=== PATIENT | male | born 1935 | race Caucasian/White ===

== ENCOUNTER 2020-11-23 08:29 | Outpatient (REF) | payer OTHER, SELFPAY ==
[2020-11-23 09:44] LABS: MANUAL DIFF FLAG NO
[2020-11-23 10:08] LABS: Basophils Percent Auto 0.5 % (0-2); Eosinophils Absolute Auto 0.2 X10*3/uL (0.0-0.4); Eosinophils Percent Auto 3.7 % (0-4); Hematocrit 45.4 % (42-52); Hemoglobin 14.6 g/dl (14.0-18.0); Imm Gran Abs Auto 0.04 X10*3/uL (0.00-0.03); Imm Gran Pct Auto 0.6 % (0.0-0.4); Lymphocytes Absolute Auto 1.8 X10*3/uL (1.2-4.9); Lymphocytes Percent Auto 27.9 % (20-40); Mean Corpuscular HGB Conc 32.2 g/dl (31.0-36.0); Mean Corpuscular Hemoglobin 29.5 pg (27.0-33.0); Mean Corpuscular Volume 91.7 fL (80-98); Monocytes Absolute Auto 0.5 X10*3/uL (0.1-1.2); Monocytes Percent Auto 6.9 % (2-11); Neutrophils Absolute Auto 3.9 X10*3/uL (2.0-8.3); Neutrophils Percent Auto 60.4 % (45-73); Platelet Count 318 X10*3/uL (160-400); Red Blood Count 4.95 X10*6/uL (4.60-5.80); Red Cell Distribution Width 13.2 % (11.0-16.0); White Blood Count 6.5 X10*3/uL (4.8-10.8)
[2020-11-23 10:17] LABS: Alanine Aminotransferase 12 U/L (0-40); Alkaline Phosphatase 58 U/L (39-117); Anion Gap 13 (12-20); Aspartate Amino Transferase 11 U/L (5-37); Bilirubin Total 0.7 mg/dL (0.0-1.0); Blood Urea Nitrogen 17 mg/dL (9-16); Calcium 9.5 mg/dL (8.4-10.2); Carbon Dioxide 26 mmol/L (22-29); Chloride 107 mmol/L (96-108); Cholesterol 158 mg/dL; Estimated Glomerular Filt Rate > 60; Glucose Fasting 94 mg/dL (60-99); HDL Cholesterol 43 mg/dL; LDL Cholesterol Calculated 99 mg/dl; Potassium 4.9 mmol/L (3.3-5.1); Sodium 141 mmol/L (135-145); Total Protein 7.1 g/dL (6.5-8.0); Triglycerides 82 mg/dL
[2020-11-23 10:39] LABS: Thyroid Stimulating Hormone 1.43 uIU/mL (0.32-4.0)
== END 2020-11-23 08:30 | disposition home or self-care (01) ==
LOC: HO.LAB 08:29
PROVIDERS: PCP Internal Medicine; Visit Provider Internal Medicine
DX: Z00.00 Encounter for general adult medical examination without abnormal findings (principal); E03.9 Hypothyroidism, unspecified; E11.9 Type 2 diabetes mellitus without complications
CPT/HCPCS: 36415; 80053; 80061; 84443; 85025

== ENCOUNTER 2020-11-30 12:20 | Outpatient (REF) | payer OTHER, SELFPAY ==
--- NOTE | ~2020-11-30 | US_ITS ---
EXAMINATION: US THYROID CLINICAL INFORMATION: Nontoxic single thyroid nodule. COMPARISON: None TECHNIQUE: Linear transducer velez-scale and color Doppler examination with attention to the region of the thyroid. FINDINGS: SIZE: Measurements of the thyroid lobes and nodules are given in sagittal, anteroposterior and transverse dimensions respectively. Right Thyroid Lobe: 5.5 x 4.0 x 3.0 cm, volume 34 mL. Parenchyma: The gland echotexture is homogeneous. Thyroid vascularity is normal. Left Thyroid Lobe: 3.4 x 1.9 x 1.1 cm, volume 3.6 mL. Parenchyma: The gland echotexture is homogeneous. Thyroid vascularity is normal. Isthmus: 0.16 cm in maximum AP dimension. Estimated total number of nodules greater than or equal to 1 cm: 1. Operating Room Registered Nurse nodules are described as follows: 1. Location: Right inferior. Size: 4.2 x 3.0 x 3.8 cm, volume 25.0 mL. Nodule characteristics: Composition: Solid/almost completely solid (2). Echogenicity: Hypoechoic (2). Shape: Not taller than wide (0). Margins: Smooth (0). Echogenic Foci: None (0). ACR TI-RADS total points: 4 ACR TI-RADS category: 4 NODES: No lymphadenopathy is seen in the tissue surrounding the thyroid gland. US/US thyroid IMPRESSION: Homogeneous thyroid parenchyma with normal vascularity. No thyromegaly. Inferior right thyroid nodule measuring up to 4.2 cm with ultrasound characteristics consistent with TI-RADS Category 4. Fine-needle aspiration of the nodule is recommended. ACR TI-RADS RECOMMENDATION REFERENCE: Ultrasound-guided fine-needle aspiration, followup ultrasound, no further followup. * TR1 (0 point) and TR 2 (2 points): No FNA or followup. * TR3 (3 points): FNA if more than or equal to 2.5 cm in maximum dimension, followup ultrasound in 1, 3 and 5 years if 1.5 to 2.4 cm in maximum dimension. * TR4 (4-6 points): FNA if more than or equal to 1.5 cm in maximum dimension, followup ultrasound in 1, 2, 3 and 5 years if 1 to 1.4 cm in maximum dimension. * TR5 (more than or equal to 7 points): FNA if more than or equal to 1 cm in maximum dimension, followup ultrasound every year for 5 years if 0.5 to 0.9 cm in maximum dimension. * TR3, TR4 or TR5 nodules that are below the size threshold for followup receive no followup.
== END 2020-11-30 12:21 | disposition home or self-care (01) ==
LOC: HO.US 12:20
PROVIDERS: Visit Provider Internal Medicine
DX: E04.1 Nontoxic single thyroid nodule (principal)
CPT/HCPCS: 76536

== ENCOUNTER → 2020-12-07 13:11 | Outpatient (BNVA) | payer OTHER, SELFPAY | PROVIDERS: PCP Internal Medicine; Referring Provider Internal Medicine; Visit Provider Nurse Practitioner ==

== ENCOUNTER 2021-12-03 08:27 | Outpatient (REF) | payer OTHER, SELFPAY | END 2021-12-03 08:28 | disposition home or self-care (01) | LOC: HO.LAB 08:27 | PROVIDERS: PCP Internal Medicine; Visit Provider Internal Medicine | DX: N39.0 Urinary tract infection, site not specified (principal) | CPT/HCPCS: 87086 ==

== ENCOUNTER 2021-12-06 07:38 | Outpatient (REF) | payer OTHER, SELFPAY ==
[2021-12-06 08:00] LABS: MANUAL DIFF FLAG NO
[2021-12-06 08:27] LABS: Basophils Percent Auto 0.4 % (0-2); Eosinophils Absolute Auto 0.3 X10*3/uL (0.0-0.4); Hematocrit 42.1 % (42.0-52.0); Hemoglobin 13.4 g/dl (14.0-18.0); Imm Gran Abs Auto 0.03 X10*3/uL (0.00-0.03); Imm Gran Pct Auto 0.4 % (0.0-0.4); Lymphocytes Absolute Auto 1.7 X10*3/uL (1.2-4.9); Lymphocytes Percent Auto 24.9 % (20-40); Mean Corpuscular HGB Conc 31.8 g/dl (31.0-36.0); Mean Corpuscular Hemoglobin 29.1 pg (27.0-33.0); Mean Corpuscular Volume 91.3 fL (80.0-98.0); Mean Platelet Volume 11.2 fL (9.4-12.4); Monocytes Absolute Auto 0.6 X10*3/uL (0.1-1.2); Monocytes Percent Auto 8.4 % (2-11); Neutrophils Absolute Auto 4.2 x10*3/uL (2.0-8.3); Neutrophils Percent Auto 61.9 % (45-73); Platelet Count 377 X10*3/uL (160-400); Red Blood Count 4.61 X10*6/uL (4.60-5.80); Red Cell Distribution Width 13.4 % (11.0-16.0); White Blood Count 6.8 X10*3/uL (4.8-10.8)
[2021-12-06 08:57] LABS: Alanine Aminotransferase 7 U/L (0-40); Alkaline Phosphatase 83 U/L (39-117); Anion Gap 11 (12-20); Aspartate Amino Transferase 9 U/L (5-37); Bilirubin Total 0.8 mg/dL (0.0-1.0); Blood Urea Nitrogen 15 mg/dL (9-16); Calcium 9.2 mg/dL (8.4-10.2); Carbon Dioxide 27 mmol/L (22-29); Chloride 107 mmol/L (96-108); Cholesterol 165 mg/dL; Estimated Glomerular Filt Rate > 60; Glucose Fasting 98 mg/dL (60-99); HDL Cholesterol 39 mg/dL; LDL Cholesterol Calculated 108 mg/dl; Potassium 4.6 mmol/L (3.3-5.1); Sodium 140 mmol/L (135-145); Total Protein 7.2 g/dL (6.5-8.0); Triglycerides 94 mg/dL
[2021-12-06 09:08] LABS: Thyroid Stimulating Hormone 1.81 uIU/mL (0.32-4.0)
== END 2021-12-06 07:39 | disposition home or self-care (01) ==
LOC: HO.LAB 07:38
PROVIDERS: PCP Internal Medicine; Visit Provider Internal Medicine
DX: Z13.0 Encounter for screening for diseases of the blood and blood-forming organs and certain disorders involving the immune mechanism (principal); E78.5 Hyperlipidemia, unspecified; E03.9 Hypothyroidism, unspecified; I10 Essential (primary) hypertension
CPT/HCPCS: 36415; 80053; 80061; 84443; 85025

== ENCOUNTER 2022-03-28 10:21 | Outpatient (REF) | payer OTHER, SELFPAY ==
[2022-03-28 10:35] LABS: MANUAL DIFF FLAG NO
[2022-03-28 11:07] LABS: Basophils Percent Auto 0.4 % (0-2); Eosinophils Absolute Auto 0.4 X10*3/uL (0.0-0.4); Eosinophils Percent Auto 5.6 % (0-4); Hematocrit 41.1 % (42.0-52.0); Hemoglobin 13.2 g/dl (14.0-18.0); Imm Gran Abs Auto 0.04 X10*3/uL (0.00-0.03); Imm Gran Pct Auto 0.6 % (0.0-0.4); Lymphocytes Absolute Auto 1.7 X10*3/uL (1.2-4.9); Lymphocytes Percent Auto 24.2 % (20-40); Mean Corpuscular HGB Conc 32.1 g/dl (31.0-36.0); Mean Corpuscular Hemoglobin 28.9 pg (27.0-33.0); Mean Corpuscular Volume 90.1 fL (80.0-98.0); Mean Platelet Volume 11.2 fL (9.4-12.4); Monocytes Absolute Auto 0.7 X10*3/uL (0.1-1.2); Monocytes Percent Auto 10.7 % (2-11); Neutrophils Percent Auto 58.5 % (45-73); Platelet Count 422 X10*3/uL (160-400); Red Blood Count 4.56 X10*6/uL (4.60-5.80); Red Cell Distribution Width 14.3 % (11.0-16.0); White Blood Count 6.9 X10*3/uL (4.8-10.8)
[2022-03-28 12:02] LABS: Anion Gap 13 (12-20); Blood Urea Nitrogen 13 mg/dL (9-16); Calcium 8.9 mg/dL (8.4-10.2); Carbon Dioxide 26 mmol/L (22-29); Chloride 107 mmol/L (96-108); Estimated Glomerular Filt Rate > 60; Glucose Random 80 mg/dL (60-115); Potassium 4.6 mmol/L (3.3-5.1); Sodium 141 mmol/L (135-145); Thyroid Stimulating Hormone 1.54 uIU/mL (0.32-4.0)
[2022-03-28 12:17] LABS: Folate 4.6 ng/mL (> or = 4.0); Vitamin B12 268 pg/mL (200-900)
== END 2022-03-28 10:22 | disposition home or self-care (01) ==
LOC: HO.LAB 10:21
PROVIDERS: PCP Internal Medicine; Visit Provider Internal Medicine
DX: Z13.0 Encounter for screening for diseases of the blood and blood-forming organs and certain disorders involving the immune mechanism (principal); E03.9 Hypothyroidism, unspecified; R41.89 Other symptoms and signs involving cognitive functions and awareness; R51.9 Headache, unspecified
CPT/HCPCS: 36415; 80048; 82607; 82746; 84443; 85025

== ENCOUNTER 2022-04-19 09:18 | Outpatient (REF) | payer OTHER, SELFPAY ==
--- NOTE | ~2022-04-19 | CT_ITS ---
EXAMINATION: CT HEAD WITHOUT CONTRAST CLINICAL INFORMATION: Impairment cognitive function COMPARISON: No relevant prior imaging. TECHNIQUE: Contiguous axial imaging was performed from the skull base to vertex without intravenous administration of contrast. This CT examination was performed using dose optimization techniques as appropriate, variously including the following: *Automated exposure control *Adjustment of mA and/or kV according to patient size (this includes techniques or standardized protocols for targeted exams where dose is matched to indication/reason for exam; i.e. extremities or head) *Use of iterative reconstruction technique DLP: 744 mGy-cm FINDINGS: There is no acute intracranial hemorrhage or abnormal extra-axial collection. No intracranial mass effect or midline shift. Lateral and third ventricles are proportionate to the subarachnoid spaces. No hydrocephalus. There are scattered nonspecific foci of hypoattenuation within the periventricular white matter that most likely represent a chronic manifestation of small vessel ischemia. Quintanilla-white matter differentiation is otherwise preserved and there is no evidence of acute territorial infarct. The calvarium and skull base are intact. Mastoid air cells and middle ear cavities are well aerated. Mild mucosal thickening is partially visualized within the ethmoid air cells and frontal sinuses. CT/CT head/brain wo IV con IMPRESSION: There are scattered chronic small vessel ischemic changes within the periventricular white matter. Otherwise unremarkable examination. No evidence of acute territorial infarct or hemorrhage.
== END 2022-04-19 09:19 | disposition home or self-care (01) ==
LOC: HO.CT 09:18
PROVIDERS: Visit Provider Internal Medicine
DX: R41.89 Other symptoms and signs involving cognitive functions and awareness (principal)
CPT/HCPCS: 70450

== ENCOUNTER 2022-08-14 11:24 | Outpatient (REF) | payer OTHER, SELFPAY ==
[2022-08-14 17:48] LABS: Appearance Urine Clear; Color Urine Dark Yellow; Glucose Urine UA Negative (Negative); Leukocyte Esterase Urine Negative (Negative); Nitrite Urine Negative (Negative); PH 5.5 (5.0-9.0); Specific Gravity - Urine 1.025 (1.005-1.025); Urine Blood Negative (Negative); Urine Ketones Negative (Negative); Urine Protein Negative (Neg-Trace)
== END 2022-08-14 11:25 | disposition home or self-care (01) ==
LOC: HO.LAB 11:24
PROVIDERS: PCP Internal Medicine; Visit Provider Internal Medicine
DX: R41.89 Other symptoms and signs involving cognitive functions and awareness (principal)
CPT/HCPCS: 81003

== ENCOUNTER → 2022-09-04 12:18 | Outpatient (REF) | payer OTHER, SELFPAY ==
--- NOTE | 2022-09-04 12:26 | ECG_ITS ---
Test Reason : OTHER SYMPTOMS OF COG. FUNCTION Blood Pressure : / mmHG Vent. Rate : 047 BPM Atrial Rate : 047 BPM P-R Int : 216 ms QRS Dur : 084 ms QT Int : 450 ms P-R-T Axes : 002 -17 037 degrees QTc Int : 398 ms Sinus bradycardia with 1st degree A-V block Otherwise normal ECG When compared with ECG of 06-JAN-2009 09:58, WA interval has increased Referred By: Vikas Fernandez Electronically Signed By:Sarwat Hess
== END ==
LOC: HO.CARD 12:18
PROVIDERS: PCP Internal Medicine; Visit Provider Internal Medicine
DX: R41.89 Other symptoms and signs involving cognitive functions and awareness (principal)
CPT/HCPCS: 93005

== ENCOUNTER 2022-11-20 13:07 | Outpatient (REF) | payer OTHER, SELFPAY ==
--- NOTE | ~2022-11-20 | XR_ITS ---
EXAMINATION: XR LUMBOSACRAL SPINE CLINICAL INFORMATION: Left-sided lower back pain COMPARISON: 01/09/2019 CT scan TECHNIQUE: Three views of the lumbosacral spine. FINDINGS: 5 nonrib-bearing lumbar-type vertebra are again seen. Multilevel degenerative changes are present more so in the posterior elements of the lower lumbar spine. Bones are normal anatomic alignment with no acute fracture or spondylolisthesis. Vascular calcification within the abdominal aorta again noted similar to the prior CT unremarkable bowel gas pattern bilateral hip prostheses partially visualized XR/XR lumbar spine 2-3V IMPRESSION: Multilevel degenerative changes but no acute fracture or spondylolisthesis.
== END 2022-11-20 13:08 | disposition home or self-care (01) ==
LOC: HO.XRAY 13:07
PROVIDERS: PCP Internal Medicine; Visit Provider Internal Medicine
DX: M54.9 Dorsalgia, unspecified (principal)
CPT/HCPCS: 72100

== ENCOUNTER 2022-12-11 13:49 | Outpatient (AMB) | payer OTHER, SELFPAY ==
[2022-12-11 13:54] VITALS: BP 120/80; PULSE 52; BMI 24.6
--- NOTE | 2022-12-11 13:54 | A.OFFVIS_ITS ---
Intake Vital Signs 12/11/22 13:54 Height 5 ft 11 in Weight 176 lb 5.917 oz BMI 24.6 BP 120/80 Blood Pressure Location Lt brachial Position Sitting Pulse 52 Intake Visit Reasons: NPV/Lainer/Abnormal EKG Intake Note: New patient abnormal ekg feeling good concerned about taking un needed med's Fulfillment Specialist Required: No Forex Trader: Forex Trader Present Accompanied by: Son Allergies aspirin Allergy (Intermediate, Verified 11/10/22 10:06) Stomach Upset Medication List - Last Reconciled 12/11/22 by Rubén Morin MD No Known Home Meds HPI HPI Comments History of Present Illness Details Ha was referred here for further evaluation of sinus bradycardia. He is accompanied by son. He has been recently diagnosed with Ceferino body dementia and has been suggested that he would benefit from Aricept therapy. However was noted to have significant bradycardia with heart rate in the mid 40s. Patient has sinus bradycardia, currently not on any medications. A EKG done last October for hip surgery which time his heart rate was at 71 beats per minute. Patient and patient's son seem to think that his bradycardia is been longstanding. Patient says he has never any symptoms of lightheadedness or syncope. He has had very limited functionality and currently walks with a shuffling gait. There are no clear falls. He has had significant cognitive decline and also has issues with held listen a mckeon with seems to potentially be benefited by the Aricept therapy. There is evidence in the literature of Aricept causing sinus bradycardia independently in comparison to other standard therapy. TSH done recently within normal limits. There is no prior cardiovascular history. Patient has no shortness of breath, orthopnea, PND. [facility] Medical History Thyroid nodule Surgical History History of right hip replacement Hx of cholecystectomy Family History Mother No problems noted. Father No problems noted. Social History Housing: House Alcohol intake: current Alcohol intake frequency: a few times a month Patient Tobacco Use Status: Current someday Tobacco user Tobacco use type: Cigar Years Smoked: 4 cigars a week e-Cigarette/Vaping Use: Never Used Second Hand Smoke Exposure: No service: No Current occupational status: retired Cognitive needs: Yes (cane) Hearing needs: No Vision needs: Yes (glasses) Review of Systems Const Denies chills, Denies daytime sleepiness, Denies fatigue, Denies fever(s), Denies frequent falls, Denies poor appetite, Denies snoring, Denies stops breathing during sleep, Denies weakness, Denies weight gain and Denies weight loss Eyes Denies loss of vision ENT Denies dizziness and Denies hearing loss Card Denies chest pain, Denies claudication, Denies leg edema, Denies lightheadedness, Denies palpitations, Denies dyspnea, Denies dyspnea on exertion and Denies orthopnea Resp Denies cough, Denies excessive phlegm production, Denies dyspnea, Denies dyspnea on exertion, Denies snoring and Denies wheezing GI Denies abdominal pain, Denies hematochezia, Denies change in bowel habits, Denies nausea and Denies vomiting Denies dysuria and Denies urinary frequency Musc Denies arthralgias, Denies muscle weakness, Denies numbness and Denies other (frequent falls) Skin/Breast Denies nail changes and Denies rash Neuro Denies Abnormal speech present, Denies dizziness, Denies frequent falls, Denies loss of vision, Denies memory loss, Denies numbness and Denies weakness Psych Denies depression and Denies memory loss Endo Denies fatigue and Denies palpitations Vaughn/Lymph Reports easy bruising and Reports other (anemia) Aller/Immun Denies wheezing Physical Exam Vital Signs: Last Vital Signs Pulse 52 12/11/22 13:54 BP 120/80 12/11/22 13:54 BMI result Body Mass Index 24.6 Const General: cooperative, comfortable, alert and awake Nutritional Appearance: average body habitus and other (Frail elderly man) Limitations: ambulation with cane HEENT Head: Yes normocephalic and Yes atraumatic Neck Neck: Yes trachea midline, Yes supple and Yes no JVD Resp Effort & Inspection: normal respiratory effort Auscultation: clear to auscultation bilaterally Cardio Jugular venous distension: no JVD Palpation: normal PMI Rate: regular rate Rhythm: regular rhythm Heart sounds: S1 normal heart sound present, S2 normal heart sound present, no click, no gallops, no murmurs and no rubs GI Auscultation: normal bowel sounds Skin General skin exam: no rashes or lesions noted Neuro General: no focal motor deficits Speech: No Abnormal speech present Extrem General: Yes no clubbing, cyanosis or edema Assessment & Plan Assessment & Plan (1) Sinus bradycardia: Code(s): R00.1 - Bradycardia, unspecified Plan: Sinus bradycardia which is suggestive sinoatrial juan dysfunction this elderly gentleman without any use of any medications. He is currently also nor any eyedrops. However he has no symptoms related to it. Usually sinus bradycardia by itself does not require pacing therapy. Also suggest him to undergo a Holter monitor to see if there is any significant pauses neb may qualify him for pacemaker. If not this would be a clear clinicaldilemma. It seems like Aricept is likely to help with his held listen a shins related to his cognitive dysfunction. However at risk of causing further sinus bradycardia. As per the clinical literature not all patients on Aricept developed bradycardia and therefore 1 approach would be to start Aricept therapy if he has no clear indication for pacemaker follow him clinically. If he develops further bradycardia and/or symptoms related to bradycardia and Aricept his clinically helping him, can consider a pacemaker placement. This was discussed with the son in details. Will set up for Holter monitor in near future. Follow up after the same in the clinic Orders: Orders ECG 7 day holter monitor 2 Weeks R00.1 - Bradycardia, unspecified Coding Level of Care Code New Pt Level 4 (39779) Diagnoses Sinus bradycardia R00.1
== END 2022-12-11 14:19 | disposition home or self-care (01) ==
PROVIDERS: Visit Provider Internal Medicine Cardiovascular Disease
DX: R00.1 Bradycardia, unspecified (principal)
CPT/HCPCS: 99204

== ENCOUNTER → 2022-12-11 13:49 | Outpatient (BNVA) | payer OTHER, SELFPAY | PROVIDERS: Visit Provider Internal Medicine Cardiovascular Disease ==

== ENCOUNTER → 2023-01-02 13:24 | Outpatient (REF) | payer OTHER, SELFPAY ==
--- NOTE | 2023-01-02 13:27 | HM_ITS ---
* Total monitoring time 7 days. * Underlying rhythm is sinus. Average ventricular rate 54/Min. Range 39 to 79/Min. * About 72% the time, rate less than 60/Min. * Frequent PACs with a burden of 4.8%. * Rare PVCs. * No significant pauses or AV blocks. * No patient markers or events in diary. MTDD
== END ==
LOC: HO.CARD 13:24
PROVIDERS: PCP Internal Medicine; Visit Provider Internal Medicine Cardiovascular Disease
DX: R00.1 Bradycardia, unspecified (principal)
CPT/HCPCS: 93242

== ENCOUNTER → 2023-01-02 13:27 | Outpatient (BNV) | payer OTHER, SELFPAY | PROVIDERS: PCP Internal Medicine; Visit Provider Internal Medicine | DX: I49.1 Atrial premature depolarization (principal) | CPT/HCPCS: 93244 ==

== ENCOUNTER 2023-11-30 08:48 | Outpatient (AMB) | payer OTHER, SELFPAY ==
--- NOTE | 2023-11-30 08:53 | A.OFFPC_ITS ---
Vital Signs 11/30/23 08:54 Height 5 ft 11 in Weight 177 lb 4 oz BMI 24.7 BP 90/60 Blood Pressure Location Lt brachial Position Sitting Pulse 51 Pulse Source Pulse Oximeter Pulse Oximetry (%) 97 Oxygen Delivery Method Room Air Intake Visit Reasons: annual exam Intake Note: Patient is here today for a physical. Zipper Setter Lockstitch Required: No Mechanical Maintenance: Present Accompanied by: Son Allergies aspirin Allergy (Intermediate, Verified 11/30/23 08:54) Stomach Upset Medication List - Last Reconciled 11/30/23 by Vikas Fernandez MD donepezil 10 mg PO DAILY Tobacco use date assessed: 11/30/23 Fall risk assessment: No Falls in past year Last assessed Fall Risk: 11/30/23 Dental Screening Dental Screen Date: 11/30/23 Did you have a dental visit in the last 12 months?: Yes Did you have a dental problem in the last 6 months where you did not have access to dental care?: No Was dental information given to patient?: Patient has dentist HPI annual exam HPI Details mild cognitive impairment; stable; due for labs [facility] Medical History Thyroid nodule Surgical History History of right hip replacement Hx of cholecystectomy Family History Mother No problems noted. Father No problems noted. Social History Housing: House Alcohol intake: current Alcohol intake frequency: a few times a month Patient Tobacco Use Status: Current someday Tobacco user Tobacco use type: Cigar Years Smoked: 4 cigars a week e-Cigarette/Vaping Use: Never Used Second Hand Smoke Exposure: No service: No Current occupational status: retired Cognitive needs: Yes (cane) Hearing needs: No Vision needs: Yes (glasses) Questionnaire PHQ-9 Over the last 2 weeks, how often have you been bothered by any of the following problems? 1. Little interest or pleasure in doing things: not at all 2. Feeling down, depressed, or hopeless: not at all 3. Trouble falling or staying asleep, or sleeping too much: not at all 4. Feeling tired or having little energy: not at all 5. Poor appetite or overeating: not at all 6. Feeling bad about yourself - or that you are a failure or have let yourself or your family down: not at all 7. Trouble concentrating on things, such as reading the newspaper or watching television: not at all 8. Moving or speaking so slowly that other people could have noticed. Or the opposite - being so fidgety or restless that you have been moving around a lot more than usual: not at all 9. Thoughts that you would be better off or of hurting yourself in some way: not at all Total score: 0 Depression Screening Interpretation: Negative Depression Screening Done: Yes Source: Developed by Drs. Yossi To, Korin Aburto, Pratik Jaeger and colleagues, with an educational fantasma from [employer]. Thrive Questionnaire Date Thrive assessed: 11/30/23 I am a: Patient What is your living situation today?: I have a steady place to live Within the past 12 months, did the food you bought not last and you didn't have the money to get more?: Never true Within the past 12 months, did you worry whether your food would run out before you got money to buy more?: Never true Do you have trouble paying for medicines?: No Do you have trouble getting transportation to medical appointments?: No Do you have trouble paying your heating and electricity bill?: No Do you have trouble taking care of your child, family member or friend?: No Do you have trouble with day-to-day activities such as bathing, preparing meals, shopping, managing finances, etc.?: No Are you currently unemployed and looking for a job?: No Are you interested in more education?: No Currently or been in a relationship where the following occur: No concerns reported THRIVE Score: 0 AUDIT C Alcohol Use Questionnaire (AUDIT-C) 1. How often do you have a drink containing alcohol?: Never Total Score: 0 MAYNOR-7 AMB Questionnaire MAYNOR-7 Date MAYNOR - 7 assessed: 11/30/23 Feeling nervous, anxious, or on edge: 0 = Not at all Not being able to stop or control worryin = Not at all Worrying too much about different things: 0 = Not at all Trouble relaxin = Not at all Being so restless that it is hard to sit still: 0 = Not at all Becoming easily annoyed or irritable: 0 = Not at all Feeling afraid as if something awful might happen: 0 = Not at all Total MAYNOR-7 score (0-4 normal; 5-9 mild; 10-14 moderate; 15-21 severe): 0 Source: Developed by Drs. Yossi To, Korin Aburto, Pratik Jaeger and colleagues, with an educational fantasma from [employer]. Review of Systems Const Denies chills, Denies fatigue, Denies headache(s) and Denies weight loss Eyes Denies change in vision, Denies diplopia and Denies eye pain ENT Denies vertigo, Denies dizziness, Denies headache(s) and Denies nasal discharge Card Denies chest pain, Denies rapid heart rate and Denies dyspnea on exertion Resp Denies chest congestion, Denies cough, Denies pain with cough and Denies dyspnea on exertion GI Denies abdominal pain, Denies hematochezia and Denies change in bowel habits Musc Denies myalgias, Denies arthralgias and Denies joint swelling Skin/Breast Denies lesions and Denies unusual bruising Neuro Denies vertigo, Denies dizziness, Denies headache(s) and Denies focal weakness Endo Denies fatigue Physical exam (Primary Care) Vital Signs: Last Vital Signs Pulse 51 11/30/23 08:54 BP 90/60 11/30/23 08:54 Pulse Ox 97 11/30/23 08:54 Oxygen Delivery Method Room Air 11/30/23 08:54 BMI result Body Mass Index 24.7 Tobacco/Smoking Status: Tobacco use Status Tobacco use date assessed 11/30/23 11/30/23 09:01 Patient Tobacco Use Status Current someday Tobacco 11/30/23 09:01 Tobacco use type Cigar 11/30/23 09:01 e-Cigarette/Vaping Use Never Used 11/30/23 09:01 PHQ-9: PHQ-9 Score PHQ-9: Total score 0 11/30/23 09:01 Depression Screening Interpretation: Negative Thrive Assessment: Date of Thrive Assessment Date Thrive assessed 11/30/23 11/30/23 09:01 Currently or been in a relationship where the following occur: No concerns reported Const General: cooperative, healthy appearing and no acute distress Orientation/consciousness: oriented to person, oriented to place and oriented to time HENMT Head: Yes normal to inspection, Yes normocephalic and Yes atraumatic Mouth: Normal oral and palatal mucosa present and tongue normal Throat: Yes posterior oropharynx normal and Yes uvula midline Eyes General: appearance normal, both eyes and all related structures Neck Neck: Yes normal visual inspection, Yes full ROM and Yes no lymphadenopathy Thyroid: Thyroid normal Carotids: normal carotid upstroke Chest Chest palpation & inspection: normal inspection of the chest Resp Effort & Inspection: normal respiratory effort and able to speak in complete sentences Auscultation: clear to auscultation bilaterally Cardio Jugular venous distension: no JVD Palpation: normal PMI Rate: regular rate Rhythm: regular rhythm Heart sounds: S1 normal heart sound present and S2 normal heart sound present GI Inspection: Yes normal to inspection Palpation (GI): Soft to palpation and No hepatosplenomegaly present Auscultation: normal bowel sounds General: Yes no CVA tenderness Back/Spine/Pelvis Back: no CVA tenderness Skin General skin exam: no rashes or lesions noted Neuro General: oriented to person, oriented to place and oriented to time Extrem General: Yes normal to inspection and Yes full ROM Assessment and Plan Assessment & Plan (1) Physical exam: Code(s): Z00.00 - Encounter for general adult medical examination without abnormal findings Plan: stable; do labs (2) Cognitive decline: Code(s): R41.89 - Other symptoms and signs involving cognitive functions and awareness Plan: stable; same rx Orders: Orders Thyroid Stimulating Hormone Today Z13.29 - Encounter for screening for other suspected endocrine disorder Comprehensive [place]. Panel Fast Today Z13.9 - Encounter for screening, unspecified Complete Blood Count Auto Diff Today Z13.0 - Encounter for screening for diseases of the blood and blood-forming organs and certain disorders involving the immune mechanism Lipid Panel Today Z13.220 - Encounter for screening for lipoid disorders Coding Level of Care Code Est Pt Prev Care >65y(59895) Diagnoses Physical exam Z00.00 Cognitive decline R41.89
[2023-11-30 08:54] VITALS: BP 90/60; PULSE 51; O2SAT 97; BMI 24.7
== END 2023-11-30 09:16 | disposition home or self-care (01) ==
PROVIDERS: PCP Internal Medicine; Visit Provider Internal Medicine
DX: Z00.00 Encounter for general adult medical examination without abnormal findings (principal); R41.89 Other symptoms and signs involving cognitive functions and awareness
CPT/HCPCS: 99397

== ENCOUNTER 2023-12-01 09:22 | Outpatient (REF) | payer OTHER, SELFPAY ==
[2023-12-01 09:35] LABS: MANUAL DIFF FLAG NO
[2023-12-01 09:43] LABS: Basophils Percent Auto 0.6 % (0-2); Eosinophils Absolute Auto 0.2 X10*3/uL (0.0-0.4); Eosinophils Percent Auto 2.9 % (0-4); Hematocrit 43.1 % (42.0-52.0); Hemoglobin 14.1 g/dl (14.0-18.0); Imm Gran Abs Auto 0.02 X10*3/uL (0.00-0.03); Imm Gran Pct Auto 0.3 % (0.0-0.4); Lymphocytes Absolute Auto 1.9 X10*3/uL (1.2-4.9); Lymphocytes Percent Auto 27.7 % (20-40); Mean Corpuscular HGB Conc 32.7 g/dl (31.0-36.0); Mean Corpuscular Hemoglobin 30.1 pg (27.0-33.0); Mean Corpuscular Volume 92.1 fL (80.0-98.0); Mean Platelet Volume 10.9 fL (9.4-12.4); Monocytes Absolute Auto 0.5 X10*3/uL (0.1-1.2); Monocytes Percent Auto 7.6 % (2-11); Neutrophils Absolute Auto 4.2 x10*3/uL (2.0-8.3); Neutrophils Percent Auto 60.9 % (45-73); Platelet Count 388 X10*3/uL (160-400); Red Blood Count 4.68 X10*6/uL (4.60-5.80); Red Cell Distribution Width 13.8 % (11.0-16.0); White Blood Count 6.9 X10*3/uL (4.8-10.8)
[2023-12-01 10:10] LABS: Alanine Aminotransferase 7 U/L (0-40); Alkaline Phosphatase 51 U/L (39-117); Anion Gap 10 (12-20); Aspartate Amino Transferase 10 U/L (5-37); Bilirubin Total 0.8 mg/dL (0.0-1.0); Blood Urea Nitrogen 14 mg/dL (9-16); Carbon Dioxide 27 mmol/L (22-29); Chloride 109 mmol/L (96-108); Cholesterol 154 mg/dL (<200); Estimated Glomerular Filt Rate > 60; Glucose Fasting 96 mg/dL (60-99); HDL Cholesterol 44 mg/dL (>40); LDL Cholesterol Calculated 96 mg/dL (<100); Potassium 4.2 mmol/L (3.3-5.1); Sodium 142 mmol/L (135-145); Triglycerides 71 mg/dL (<150)
[2023-12-01 10:25] LABS: Thyroid Stimulating Hormone 2.12 uIU/mL (0.32-4.0)
== END 2023-12-01 09:23 | disposition home or self-care (01) ==
LOC: HO.LAB 09:22
PROVIDERS: PCP Internal Medicine; Visit Provider Internal Medicine
DX: Z13.0 Encounter for screening for diseases of the blood and blood-forming organs and certain disorders involving the immune mechanism (principal); Z13.29 Encounter for screening for other suspected endocrine disorder; Z13.9 Encounter for screening, unspecified; Z13.220 Encounter for screening for lipoid disorders
CPT/HCPCS: 36415; 80053; 80061; 84443; 85025

== ENCOUNTER 2024-07-18 12:57 | Outpatient (AMB) | payer OTHER, SELFPAY ==
--- NOTE | 2024-07-18 13:07 | MHC.PC.OV ---
Vital Signs 07/18/24 13:08 Height 5 ft 11 in Weight 181 lb 2 oz BMI 25.3 BP 120/70 Blood Pressure Location Lt brachial Position Sitting Temp 97.3 F Temp Source Temporal Artery Scan Intake Visit Reasons: Discuss paperwork for Assisted living Intake Note: Patient is here to follow up on Discuss paperwork for Assisted living. Imagery Intelligence Required: No Core Man: Present Accompanied by: Son Allergies aspirin Allergy (Intermediate, Verified 07/18/24 13:08) Stomach Upset Medication List - Last Reconciled 07/18/24 by Vikas Fernandez MD donepezil 10 mg PO DAILY fluticasone propionate 220 mcg/actuation 1 puff inhalation BID Tobacco use date assessed: 07/18/24 Fall risk assessment: 1 Fall in past year Last assessed Fall Risk: 07/18/24 Dental Screening Dental Screen Date: 07/18/24 Did you have a dental visit in the last 12 months?: Yes Did you have a dental problem in the last 6 months where you did not have access to dental care?: No Was dental information given to patient?: Patient has dentist HPI Discuss paperwork for Assisted living HPI Details Alzheimer's Disease and moving to assisted living [facility] Medical History Thyroid nodule Surgical History History of right hip replacement Hx of cholecystectomy Family History Mother No problems noted. Father No problems noted. Social History Housing: House Alcohol intake: current Alcohol intake frequency: a few times a month Patient Tobacco Use Status: Current someday Tobacco user Tobacco use type: Cigar Years Smoked: 4 cigars a week e-Cigarette/Vaping Use: Never Used Second Hand Smoke Exposure: No service: No Current occupational status: retired Cognitive needs: Yes (cane) Hearing needs: No Vision needs: Yes (glasses) Questionnaire PHQ-9 Over the last 2 weeks, how often have you been bothered by any of the following problems? 1. Little interest or pleasure in doing things: not at all 2. Feeling down, depressed, or hopeless: not at all 3. Trouble falling or staying asleep, or sleeping too much: not at all 4. Feeling tired or having little energy: not at all 5. Poor appetite or overeating: not at all 6. Feeling bad about yourself - or that you are a failure or have let yourself or your family down: not at all 7. Trouble concentrating on things, such as reading the newspaper or watching television: not at all 8. Moving or speaking so slowly that other people could have noticed. Or the opposite - being so fidgety or restless that you have been moving around a lot more than usual: not at all 9. Thoughts that you would be better off or of hurting yourself in some way: not at all Total score: 0 Depression Screening Interpretation: Negative Depression Screening Done: Yes Source: Developed by Drs. Yossi To, Korin Aburto, Pratik Jaeger and colleagues, with an educational fantasma from [employer]. Thrive Questionnaire Date Thrive assessed: 07/18/24 I am a: Patient What is your living situation today?: I have a steady place to live Within the past 12 months, did the food you bought not last and you didn't have the money to get more?: Never true Within the past 12 months, did you worry whether your food would run out before you got money to buy more?: Never true Do you have trouble paying for medicines?: No Do you have trouble getting transportation to medical appointments?: No Do you have trouble paying your heating and electricity bill?: No Do you have trouble taking care of your child, family member or friend?: No Do you have trouble with day-to-day activities such as bathing, preparing meals, shopping, managing finances, etc.?: No Are you currently unemployed and looking for a job?: No Are you interested in more education?: No Please select the resources that you would like help with: None Currently or been in a relationship where the following occur: No concerns reported THRIVE Score: 0 AUDIT C Alcohol Use Questionnaire (AUDIT-C) 1. How often do you have a drink containing alcohol?: Never 2. How many drinks containing alcohol do you have on a typical day when you are drinking?: 1 or 2 3. How often do you have six or more drinks on one occasion?: Never Total Score: 0 MAYNOR-7 AMB Questionnaire MAYNOR-7 Date MAYNOR - 7 assessed: 07/18/24 Feeling nervous, anxious, or on edge: 0 = Not at all Not being able to stop or control worryin = Not at all Worrying too much about different things: 0 = Not at all Trouble relaxin = Not at all Being so restless that it is hard to sit still: 0 = Not at all Becoming easily annoyed or irritable: 0 = Not at all Feeling afraid as if something awful might happen: 0 = Not at all Total MAYNOR-7 score (0-4 normal; 5-9 mild; 10-14 moderate; 15-21 severe): 0 Source: Developed by Drs. Yossi To, Korin Aburto, Pratik Jaeger and colleagues, with an educational fantasma from [employer]. Review of Systems Const Denies chills, Denies headache(s) and Denies weight loss ENT Denies headache(s) Card Denies chest pain, Denies syncope, Denies irregular heart rhythm and Denies dyspnea Resp Denies chest congestion, Denies cough and Denies dyspnea GI Denies abdominal pain, Denies change in stool character, Denies nausea and Denies vomiting Musc Denies deformity and Denies joint swelling Neuro Denies syncope and Denies headache(s) Physical exam (Primary Care) Vital Signs: Last Vital Signs Temp 97.3 F 07/18/24 13:08 BP 120/70 07/18/24 13:08 BMI result Body Mass Index 25.3 Tobacco/Smoking Status: Tobacco use Status Tobacco use date assessed 07/18/24 07/18/24 13:15 Patient Tobacco Use Status Current someday Tobacco 07/18/24 13:15 Tobacco use type Cigar 07/18/24 13:15 e-Cigarette/Vaping Use Never Used 07/18/24 13:15 PHQ-9: PHQ-9 Score PHQ-9: Total score 0 07/18/24 13:15 Depression Screening Interpretation: Negative Thrive Assessment: Date of Thrive Assessment Date Thrive assessed 07/18/24 07/18/24 13:15 Currently or been in a relationship where the following occur: No concerns reported Const General: cooperative, comfortable, no acute distress and alert Neck Neck: Yes no lymphadenopathy Thyroid: Thyroid normal Resp Effort & Inspection: normal respiratory effort Auscultation: clear to auscultation bilaterally Percussion: percussion normal Cardio Jugular venous distension: no JVD Palpation: normal PMI Rate: regular rate Rhythm: regular rhythm Heart sounds: S1 normal heart sound present and S2 normal heart sound present GI Inspection: Yes normal to inspection Palpation (GI): No hepatosplenomegaly present Skin General skin exam: no rashes or lesions noted Extrem General: Yes no clubbing, cyanosis or edema Coding Level of Care Code Est Pt Level 3 (88283) Diagnoses Cognitive decline R41.89 Assessment & Plan Assessment & Plan (1) Cognitive decline: Code(s): R41.89 - Other symptoms and signs involving cognitive functions and awareness Category: Medical Plan: stable; same rx Medications: New fluticasone propionate 220 mcg/actuation administer with spacer 1 puff inhalation BID 12 grams 0RF
[2024-07-18 13:08] VITALS: BP 120/70; TEMP 36.3; BMI 25.3
== END 2024-07-18 13:34 | disposition home or self-care (01) ==
PROVIDERS: PCP Internal Medicine; Visit Provider Internal Medicine
DX: R41.89 Other symptoms and signs involving cognitive functions and awareness (principal)

== ENCOUNTER 2024-11-25 07:47 | Outpatient (REF) | payer OTHER, SELFPAY ==
--- OUTSIDE RECORDS SUMMARY | 2024-11-25 07:49 | XMS_ITS | Patient Health Record ---
Author Organization [facility] Address [address] [place] [address] Care Team Providers Care Health Information Managers Name Role Phone Glen Ramires Unavailable [phone] Allergies Allergen (clinical drug ingredient) Drug/Non Drug Allergy documented on EMR Reaction Allergy Type Onset Date Status aspirin Aspirin Ulcer problems Drug Allergy Ac tive Reason For Referral No Information Medications Medication SIG (Take, Route, Fr equency, Duration) Notes Start Date End Date Status Keflex 500 MG 1 capsule Orally aleida ry 12 hrs; Duration: 10 day(s) 08/07/2016 Not-Taking Meclizine HCl Active Ocuvite - Orally Active Social History Tobacco Use: Social History Observation Description Date Details (start date - stop date) Former Smoker NA - NA Tobacco Use/Smoking Question Answer Notes Are you a: former smoker Additional Findings: Tobacco Non-User Current no n-smoker Tobacco use other than smoking: Question Answer Notes Are you an other tobacco user? No Plan Of Treatment Pending Test Test Name Order Date [id number] Plate 08/07/2016 08433- Debride <25 sq cm 08/21/2016 45102- Nail Unit Biopsy 02/06/2018 Insurance Providers Payer Name Payer Address Payer Phone Subscriber Number Group Number Insured Name Patient Relationship to Insured Coverage Start Date Coverage End Date [employer] Claims [address] [address] [place] [address] [id number] Ha Smiley Self - patient is the insured Medical (General) History Medical History History ICD Code Cataracts Gall bladder problems Hiatal hernia Scarlet fever Stomach ulcer Thyroid disorder Joint implants/screws Chicken pox Surgical History Surgery Date(Month/Year) Gall bladder removal 2013 Hernia 2013 hip replacement 2007
[2024-11-25 08:31] LABS: Appearance Urine Clear; Glucose Urine UA Negative (Negative); PH 5.5 (5.0-9.0); Specific Gravity - Urine >= 1.030 (1.005-1.025)
== END 2024-11-25 07:48 | disposition home or self-care (01) ==
LOC: HO.LNP 07:47
DX: R35.0 Frequency of micturition (principal)
CPT/HCPCS: 81003

== ENCOUNTER 2024-12-01 14:15 | Outpatient (AMB) | payer OTHER, SELFPAY ==
[2024-12-01 14:20] VITALS: BP 126/78; PULSE 55; RESP 16; TEMP 36.1; O2SAT 96; BMI 25.1
--- NOTE | 2024-12-01 14:20 | A.OFFPC_ITS ---
Vital Signs 12/01/24 14:20 Height 5 ft 11 in Weight 180 lb 2 oz BMI 25.1 BP 126/78 Blood Pressure Location Lt brachial Position Sitting Respiration 16 Pulse 55 Pulse Source Pulse Oximeter Temp 97.0 F Temp Source Temporal Artery Scan Pulse Oximetry (%) 96 Oxygen Delivery Method Room Air Intake Visit Reasons: Annual Exam/[facility] Dr. Fernandez Accompanied by: Son Allergies aspirin Allergy (Intermediate, Verified 12/01/24 14:38) Stomach Upset Medication List - Last Reconciled 12/01/24 by DAVID Taylor donepezil 10 mg PO DAILY fluticasone propionate 220 mcg/actuation 1 puff inhalation BID fluticasone propionate 50 mcg/actuation (Flonase Allergy Relief) 1 spray intranasal BID meloxicam 15 mg PO DAILY triamcinolone acetonide 0.025% appl topical BID Tobacco use date assessed: 12/01/24 Fall risk assessment: 2 + Falls in past year Last assessed Fall Risk: 12/01/24 Dental Screening Dental Screen Date: 12/01/24 Did you have a dental visit in the last 12 months?: Yes Did you have a dental problem in the last 6 months where you did not have access to dental care?: No Was dental information given to patient?: Patient has dentist HPI Annual Exam/[facility] Dr. Fernandez HPI Details Patient is presenting for annual physical. Accompanied by son Dentist: up to date Eye:up to date Snellen: Right: Left: Corrected vision: glasses STI screening: n/a Colonoscopy: Pap Smer:n/a PHQ-9: Flu: up to date COVID:x2 Tdap: Diet: regular, but does not eat a lot Exercise: Just started to being able go out to walk Patient denies chest pain shortness of breath heart palpitation Denies abdominal pain/change in bowel habits Denies any urinary symptoms The patient's son reports that the patient was everyone recently and he had a urine analysis test done which was negative The patient is back to his baseline at this time [facility] Medical History Thyroid nodule Surgical History History of right hip replacement Hx of cholecystectomy Family History Mother No problems noted. Father No problems noted. Social History Housing: House Alcohol intake: current Alcohol intake frequency: a few times a month Patient Tobacco Use Status: Current someday Tobacco user Tobacco use type: Cigar Years Smoked: 3-4 cigars a week e-Cigarette/Vaping Use: Never Used Second Hand Smoke Exposure: No service: No Current occupational status: retired Cognitive needs: Yes (cane) Hearing needs: No Vision needs: Yes (glasses) Questionnaire PHQ-9 Over the last 2 weeks, how often have you been bothered by any of the following problems? 1. Little interest or pleasure in doing things: not at all 2. Feeling down, depressed, or hopeless: several days 3. Trouble falling or staying asleep, or sleeping too much: not at all 4. Feeling tired or having little energy: several days 5. Poor appetite or overeating: not at all 6. Feeling bad about yourself - or that you are a failure or have let yourself or your family down: not at all 7. Trouble concentrating on things, such as reading the newspaper or watching television: not at all 8. Moving or speaking so slowly that other people could have noticed. Or the opposite - being so fidgety or restless that you have been moving around a lot more than usual: not at all 9. Thoughts that you would be better off or of hurting yourself in some way: not at all Total score: 2 Source: Developed by Drs. Yossi To, Korin Aburto, Pratik Jaeger and colleagues, with an educational fantasma from [employer]. Thrive Questionnaire Date Thrive assessed: 11/28/24 I am a: Patient What is your living situation today?: I have a steady place to live Within the past 12 months, did the food you bought not last and you didn't have the money to get more?: Never true Within the past 12 months, did you worry whether your food would run out before you got money to buy more?: Never true Do you have trouble paying for medicines?: No Do you have trouble getting transportation to medical appointments?: No Do you have trouble paying your heating and electricity bill?: No Do you have trouble taking care of your child, family member or friend?: No Do you have trouble with day-to-day activities such as bathing, preparing meals, shopping, managing finances, etc.?: Yes Are you currently unemployed and looking for a job?: No Are you interested in more education?: No Please select the resources that you would like help with: None Currently or been in a relationship where the following occur: No concerns reported THRIVE Score: 0 AUDIT C Alcohol Use Questionnaire (AUDIT-C) 1. How often do you have a drink containing alcohol?: Monthly or less 2. How many drinks containing alcohol do you have on a typical day when you are drinking?: 1 or 2 3. How often do you have six or more drinks on one occasion?: Never Total Score: 1 MAYNOR-7 AMB Questionnaire MAYNOR-7 Date MAYNOR - 7 assessed: 07/18/24 Feeling nervous, anxious, or on edge: 0 = Not at all Not being able to stop or control worryin = Not at all Worrying too much about different things: 0 = Not at all Trouble relaxin = Not at all Being so restless that it is hard to sit still: 0 = Not at all Becoming easily annoyed or irritable: 1 = Several days Feeling afraid as if something awful might happen: 0 = Not at all Total MAYNOR-7 score (0-4 normal; 5-9 mild; 10-14 moderate; 15-21 severe): 1 Source: Developed by Drs. Yossi To, Korin Aburto, Pratik Jaeger and colleagues, with an educational fantasma from [employer]. MAYNOR-7 Assessment Billing MAYNOR-7 Assessment Tool: MAYNOR-7 Assessment 20489 Review of Systems Const Denies headache(s) Eyes Denies loss of vision ENT Denies vertigo, Denies dizziness, Denies headache(s) and Denies sore throat Card Denies chest pain, Denies leg edema and Denies lightheadedness Resp Denies cough, Denies hemoptysis and Denies wheezing GI Denies abdominal pain, Denies melena, Denies constipation, Denies diarrhea and Denies vomiting Denies dysuria, Denies urinary frequency and Denies urinary urgency Musc Denies arthralgias, Denies joint swelling, Denies numbness and Denies tingling Neuro Denies Abnormal speech present, Denies behavioral changes, Denies vertigo, Denies dizziness, Denies headache(s), Denies loss of vision, Denies memory loss, Denies numbness and Denies tingling Psych Denies anxiety, Denies behavioral changes, Denies depression, Denies memory loss and Denies panic attacks Vaughn/Lymph Denies easy bleeding and Denies easy bruising Aller/Immun Denies wheezing Physical exam (Primary Care) Vital Signs: Last Vital Signs Temp 97.0 F 12/01/24 14:20 Pulse 55 12/01/24 14:20 Resp 16 12/01/24 14:20 BP 126/78 12/01/24 14:20 Pulse Ox 96 12/01/24 14:20 Oxygen Delivery Method Room Air 12/01/24 14:20 BMI result Body Mass Index 25.1 Tobacco/Smoking Status: Tobacco use Status Tobacco use date assessed 12/01/24 12/01/24 14:28 Patient Tobacco Use Status Current someday Tobacco 12/01/24 14:28 Tobacco use type Cigar 12/01/24 14:28 e-Cigarette/Vaping Use Never Used 12/01/24 14:28 PHQ-9: PHQ-9 Score PHQ-9: Total score 2 12/01/24 14:40 Thrive Assessment: Date of Thrive Assessment Date Thrive assessed 11/28/24 12/01/24 14:28 Currently or been in a relationship where the following occur: No concerns reported Const General: healthy appearing, no acute distress, alert and awake Nutritional Appearance: well nourished Orientation/consciousness: oriented to person, oriented to place and oriented to time HENND Ears: TM's normal bilaterally General nose exam: Normal nasal mucous membranes and turbinates present Eyes Conjunctivae: conjunctivae normal Sclerae: sclerae normal Pupils: Equal, round and reactive pupils present Neck Neck: Yes no lymphadenopathy and Yes no JVD Thyroid: Thyroid normal Carotids: no bruits Resp Effort & Inspection: normal respiratory effort and not tachypneic Auscultation: no crackles, no rales, no rhonchi and no wheezes Cardio Rate: regular rate Rhythm: regular rhythm Heart sounds: no murmurs and normal S1 and S2 GI Palpation (GI): Soft to palpation, nontender, no hepatomegaly and no splenomegaly Auscultation: normal bowel sounds Skin General skin exam: no rashes or lesions noted and dry skin Neuro General: oriented to person, oriented to place and oriented to time Cranial nerves: Yes Equal, round and reactive pupils present Speech: No Abnormal speech present Gait exam (Neuro): Normal gait present Motor exam (neuro): no tremor noted Extrem Right upper extremity: full ROM Left upper extremity: full ROM Right lower extremity: full ROM and lower leg Details: non-pitting edema (No pain or discoloration) Details: 1+; no edema Left lower extremity: full ROM; no edema Psych Mental Status: mental status grossly normal Speech and movement: Normal speech and movement present Affect: normal affect Attitude: cooperative Thought process: Normal thought process present Results Reviewed Results Reviewed: Laboratory Tests 11/25/24 06:30 Urine Color Dark Yellow Urine Appearance Clear Urine pH 5.5 Ur Specific [place] >= 1.030 H Urine Protein Negative Urine Glucose (UA) Negative Urine Ketones Trace Urine Blood Negative Urine Nitrite Negative Ur Leukocyte Esterase Negative Coding Diagnoses Physical exam Z00.00 Sinus bradycardia R00.1 Cognitive decline R41.89 Chronic left hip pain M25.552; G89.29 Additional Codes MAYNOR-7 Assessment Billing - MAYNOR-7 Assessment Tool: MAYNOR-7 Assessment 11538 ([id number]) Assessment & Plan Assessment & Plan (1) Physical exam: Code(s): Z00.00 - Encounter for general adult medical examination without abnormal findings Category: Medical Plan: Preventative guidelines reviewed with the patient. Patient is up-to-date on most of his guidelines. Tdap was given in office today. (2) Sinus bradycardia: Code(s): R00.1 - Bradycardia, unspecified Category: Medical Plan: History of sinus [place]. Rate 55. Asymptomatic. Right lower leg slightly edematous, nonpitting +1 edema positive pedal pulse. The patient to be a dependent due to prolonged sitting. Encouraged compression stockings for (3) Cognitive decline: Code(s): R41.89 - Other symptoms and signs involving cognitive functions and awareness Category: Medical Plan: Patient has a history of continue active declined. Able to answer simple questions, his son gives a information the questions that the patient is unable to answer. (4) Chronic left hip pain: Code(s): M25.552 - Pain in left hip; G89.29 - Other chronic pain Category: Medical Plan: Reports chronic left hip pain that has been managed by meloxicam 15 mg as needed. The patient does not have any recent blood work to evaluate his kidney functions. Labs ordered for the patient to do as soon as possible. Orders: Orders Complete Blood Count Auto Diff Today K59.00 - Constipation, unspecified, R00.1 - Bradycardia, unspecified, R41.89 - Other symptoms and signs involving cognitive functions and awareness, Z00.00 - Encounter for general adult medical examination without abnormal findings UA CC w/rflx Micro + Cult Today K59.00 - Constipation, unspecified, R00.1 - Bradycardia, unspecified, R41.89 - Other symptoms and signs involving cognitive functions and awareness, Z00.00 - Encounter for general adult medical examination without abnormal findings Lipid Panel Today K59.00 - Constipation, unspecified, R00.1 - Bradycardia, unspecified, R41.89 - Other symptoms and signs involving cognitive functions and awareness, Z00.00 - Encounter for general adult medical examination without abnormal findings Td Immunization Today Z23 - Encounter for immunization Comprehensive Voca. Panel Fast Today K59.00 - Constipation, unspecified, R00.1 - Bradycardia, unspecified, R41.89 - Other symptoms and signs involving cognitive functions and awareness, Z00.00 - Encounter for general adult medical examination without abnormal findings TSH reflex Free T4 Today K59.00 - Constipation, unspecified, R00.1 - Bradycardia, unspecified, R41.89 - Other symptoms and signs involving cognitive functions and awareness, Z00.00 - Encounter for general adult medical examination without abnormal findings Vitamin D 25-OH Total Today K59.00 - Constipation, unspecified, R00.1 - Bradycardia, unspecified, R41.89 - Other symptoms and signs involving cognitive functions and awareness, Z00.00 - Encounter for general adult medical examination without abnormal findings
--- OUTSIDE RECORDS SUMMARY | 2024-12-01 15:04 | XMS_ITS | Patient Health Record ---
Author Organization [facility] Address [address] [place] [address] Care Team Providers Care Electronic Organ Mechanic Name Role Phone Glen Ramires Unavailable [phone] Allergies Allergen (clinical drug ingredient) Drug/Non Drug [...] Treatment Pending Test Test Name Order Date [id number] Plate 08/07/2016 20728- Debride <25 sq cm 08/21/2016 18188- Nail Unit Biopsy 02/06/2018 Insurance Providers Payer Name Payer Address Payer Phone Subscriber Number Group Number Insured Name Patient Relationship to Insured Coverage Start Date Coverage End Date [employer] Claims [address] [address] [place] [address] [id number] Ha Smiley Self - patient is the insured Medical (General) History Medical History History ICD Code Cataracts Gall bladder problems Hiatal hernia Scarlet fever Stomach ulcer Thyroid disorder Joint implants/screws Chicken pox Surgical History Surgery Date(Month/Year) Gall bladder removal 2013 Hernia 2013 hip replacement 2007
== END 2024-12-01 14:59 | disposition home or self-care (01) ==
LOC: HO.HMCH 14:15
PROVIDERS: PCP Internal Medicine
DX: Z23 Encounter for immunization (principal)

== ENCOUNTER → 2024-12-01 14:15 | Outpatient (BNVA) | payer OTHER, SELFPAY | PROVIDERS: PCP Internal Medicine | DX: Z00.00 Encounter for general adult medical examination without abnormal findings (principal); R00.1 Bradycardia, unspecified; R41.89 Other symptoms and signs involving cognitive functions and awareness; M25.552 Pain in left hip; G89.29 Other chronic pain; Z23 Encounter for immunization | CPT/HCPCS: 90471; 90714; 96127 ==

== ENCOUNTER 2024-12-09 11:11 | Outpatient (REF) | payer OTHER, SELFPAY ==
--- OUTSIDE RECORDS SUMMARY | 2024-12-04 23:59 | XMS_ITS | Continuity of Care Document ---
Author Organization [facility] Address [address] [place] [id number]- Care Team Providers Care Urology Surgeon Name Role Phone Jim HAMLIN, Vikas Tavarez Primary Care Physician Encounter [facility] Date(s): 11/04/24 - 12/04/24 [facility] [address] [place] [address]- Encounter Type: Triage Allergies, Adverse Reactions, Alerts Substance Criticality Severity Reaction Reaction Severity Status aspirin gastric ulcer Active Medications acetaminophen 325 mg oral tablet 975 mg, By Mouth, 3 times a day, May take OTC, follow directions on bottle, Refills 0, Maintenance,10/15/21 7:14:00 AM EDT, Partial fill upon patient request if the prescription is for a schedule II opioid drug. Start Date: 10/15/21 Status: Ordered Repeat number: 1 apixaban 2.5 mg oral tablet 1 tablet = 2.5 mg, By Mouth, 2 times a day, # 60 tablet, 0 Refills, Maintenance, 10/17/21 9:24:00 AM EDT, Tablet, Partial fill upon patient request if the prescription is for a schedule II opioid drug. Start Date: 10/17/21 Stop Date: 11/16/21 Status: Ordered Quantity: 60.0 Unit: tablet Repeat number: 1 donepezil 10 mg oral tablet 10 mg, 1, tablet, By Mouth, Daily at bedtime, # 90 tablet, Refills 3, Tot. Refills 3, Maintenance, 11/04/24 9:37:00 AM EDT, Route to Pharmacy Electronically, [id number], Partial fill upon patient request if the prescription is for a schedule II opioid drug., 175, cm, 08/18/24 15:48:0 0 EDT, Height Start Date: 11/04/24 Status: Ordered Quantity: 90.0 Unit: tablet Repeat number: 4 donepezil 10 mg oral tablet 10 mg, 1, tablet, By Mouth, Daily at bedtime, # 30 tablet, Refills 5, Maintenance, 12/03/24 4:12:00 PM EDT, Partial fill upon patient request if the prescription is for a schedule II opioid drug. Start Date: 12/03/24 Status: Ordered Quantity: 30.0 Unit: tablet Repeat number: 1 gabapentin 100 mg oral capsule 100 mg, 1, capsule, By Mouth, 3 times a day, PRN, # 21 capsule, Refills 0, Tot. Refills 0, Maintenance, Pain , Mild, 10/17/21 9:24:00 AM EDT, Print Requisition, Partial fill upon patient request if theprescription is for a schedule II opioid drug. Start Date: 10/17/21 Stop Date: 10/24/21 Status: Ordered Quantity: 21.0 Unit: capsule Repeat number: 1 Maalox Plus Liquid 30 mL, By Mouth, Every 4 hours, PRN Other, Heartburn, 0 Refills, Maintenance, 10/15/21 7:14:00 AM EDT, Suspension, Partial fill upon patient request if the prescription is for a schedule II opioid drug. Start Date: 10/15/21 Status: Ordered Repeat number: 1 melatonin 3 mg oral tablet By Mouth, Daily at supper, 0 Refills, Maintenance, 10/17/21 9:25:00 AM EDT, Tablet, Partial fill uponpatient request if the prescription is for a schedule II opioid drug. Start Date: 10/17/21 Status: Ordered Repeat number: 1 meloxicam 15 mg oral tablet 1 tablet = 15 mg, By Mouth, Daily, # 30 tablet, 0 Refills, Maintenance, 12/03/24 4:15:00 PM EDT, Tablet, Partial fill upon patient request if the prescription is for a schedule II opioid drug. Start Date: 12/03/24 Status: Ordered Quantity: 30.0 Unit: tablet Repeat number: 1 MiraLax Powder 1 pack/packet = 17 Gm, By Mouth, Daily, PRN Constipation, 0 Refills, Maintenance, 10/15/21 7:16:00 AMEDT, Powder, Partial fill upon patient request if the prescription is for a schedule II opioid drug. Start Date: 10/15/21 Status: Ordered Repeat number: 1 MOM Liquid 30 mL, By Mouth, Daily, PRN Constipation, 0 Refills, Maintenance, 10/15/21 7:15:00 AM EDT, Suspension, Partial fill upon patient request if the prescription is for a schedule II opioid drug. Start Date: 10/15/21 Status: Ordered Repeat number: 1 pantoprazole 40 mg oral delayed release tablet = 40 mg, By Mouth, Daily, 0 Refills, Maintenance, 10/15/21 7:16:00 AM EDT, EC Tablet Start Date: 10/15/21 Status: Ordered Repeat number: 1 senna 187 mg oral tablet 2 tablet = 17.2 mg, By Mouth, Daily at bedtime, PRN as needed for constipation, 0 Refills, Maintenance, 10/15/21 7:16:00 AM EDT, Tablet, Partial fill upon patient request if the prescription is for a schedule II opioid drug. Start Date: 10/15/21 Status: Ordered Repeat number: 1 SEROquel 25 mg oral tablet 12.5 mg, 0.5, tablet, By Mouth, Every 8 hours, PRN, Refills 0, Maintenance, Agitation, 10/17/21 9:25:00 AM EDT, Partial fill upon patient request if the prescription is for a schedule II opioid drug. Start Date: 10/17/21 Status: Ordered Repeat number: 1 Problem List Condition Confirmation Course Effective Dates Status H ealth Status Informant Generalized osteoarthritis Confirmed Active Gastric ulcer Confirmed Active Hypothyroidism Confirmed Active Prediabetes Confirmed Active Squamous cell carcinoma Confirmed Active Varicose vein Confirmed Active Recurrent vertigo Confirmed Active Social History Social History Type Response Tobacco Other: Former cigare tte smoker.. Sex Sex Representation Male (finding) Patient Care team information Care Team Personnel Name: Zoë Roman RN Position: [facility] Trauma Coordinator Member Role: Primary Care Nurse Name: Shelley Hale RN Position: [facility] RN Member Role: Primary Care Nurse Name: Vikas Fenrandez MD Position: Reference Physician Member Role: PCP Address: [address] [place] [address] Telecom: Name: Kate Fernandez RN Position: [facility] RN Member Role: Primary Care Nurse Name: Jossie Morfin RN Position: S RN Member Role: Primary Care Nurse Name: Kimber Cho RN Position: S RN Member Role: Primary Care Nurse Care Team Related Persons Name: ROCKGRACY Insurance Providers Guarantor name: BAN WILKERSON [facility] Information #: 1 Payer: [employer] [facility] Payer Identifier: NA Member Number: [id number] Group Number: [id number] Subscriber Identifier: [id number] Relationship to Subscriber: self Coverage Type: Managed Care (Private) Coverage Verification Date: NA Telecom: NA Address: NA
[2024-12-09 11:30] LABS: MANUAL DIFF FLAG NO
[2024-12-09 11:53] LABS: Hematocrit 41.9 % (42.0-52.0); Hemoglobin 13.7 g/dl (14.0-18.0); Imm Gran Abs Auto 0.07 X10*3/uL (0.00-0.03); Imm Gran Pct Auto 0.8 % (0.0-0.4); Lymphocytes Absolute Auto 1.9 X10*3/uL (1.2-4.9); Mean Corpuscular HGB Conc 32.7 g/dl (31.0-36.0); Mean Corpuscular Hemoglobin 30.0 pg (27.0-33.0); Mean Corpuscular Volume 91.7 fL (80.0-98.0); NRBC Abs Auto 0.000 X10*3/uL (0.0-0.012); NRBC Pct Auto 0.0 /100WBC (0.0-0.2); Platelet Count 508 X10*3/uL (160-400); Red Blood Count 4.57 X10*6/uL (4.60-5.80); White Blood Count 9.0 X10*3/uL (4.8-10.8)
--- OUTSIDE RECORDS SUMMARY | 2024-12-09 12:27 | XMS_ITS | Patient Health Record ---
Author Organization [facility] Address [address] [place] [address] Care Team Providers Care Director Of Hospitality Name Role Phone Glen Ramires Unavailable [phone] Allergies Allergen (clinical drug ingredient) Drug/Non Drug [...] Treatment Pending Test Test Name Order Date [id number] Plate 08/07/2016 56005- Debride <25 sq cm 08/21/2016 29470- Nail Unit Biopsy 02/06/2018 Insurance Providers Payer Name Payer Address Payer Phone Subscriber Number Group Number Insured Name Patient Relationship to Insured Coverage Start Date Coverage End Date Patient Communicator Claims [address] [address] [place] [address] [id number] Ha Smiley Self - patient is the insured Medical (General) History Medical History History ICD Code Cataracts Gall bladder problems Hiatal hernia Scarlet fever Stomach ulcer Thyroid disorder Joint implants/screws Chicken pox Surgical History Surgery Date(Month/Year) Gall bladder removal 2013 Hernia 2013 hip replacement 2007
[2024-12-09 12:42] LABS: Alanine Aminotransferase 22 U/L (0-40); Albumin Level 4.0 g/dL (3.5-5.0); Alkaline Phosphatase 72 U/L (39-117); Anion Gap 10 (12-20); Aspartate Amino Transferase 15 U/L (5-37); Blood Urea Nitrogen 16 mg/dL (9-16); Calcium 8.8 mg/dL (8.4-10.2); Carbon Dioxide 26 mmol/L (22-29); Chloride 110 mmol/L (96-108); Cholesterol 153 mg/dL (<200); Estimated Glomerular Filt Rate > 60; HDL Cholesterol 40 mg/dL (>40); Potassium 4.2 mmol/L (3.3-5.1); Sodium 142 mmol/L (135-145); Total Protein 7.0 g/dL (6.5-8.0); Triglycerides 115 mg/dL (<150)
== END 2024-12-09 11:12 | disposition home or self-care (01) ==
LOC: HO.LAB 11:11
DX: Z00.00 Encounter for general adult medical examination without abnormal findings (principal); R41.89 Other symptoms and signs involving cognitive functions and awareness; K59.00 Constipation, unspecified; R00.1 Bradycardia, unspecified
CPT/HCPCS: 36415; 80053; 80061; 82306; 84443; 85025

== ENCOUNTER 2024-12-10 23:30 | Outpatient (REF) | payer OTHER, SELFPAY ==
--- OUTSIDE RECORDS SUMMARY | 2024-12-11 17:08 | XMS_ITS | Patient Health Record ---
Author Organization [facility] Address [address] [place] [address] Care Team Providers Care Talent Acquisition Coordinator Name Role Phone Glen Ramires Unavailable [phone] Allergies Allergen (clinical drug ingredient) Drug/Non Drug [...] Treatment Pending Test Test Name Order Date [id number] Plate 08/07/2016 [id number]- Debride <25 sq cm 08/21/2016 [id number]- Nail Unit Biopsy 02/06/2018 Insurance Providers Payer Name Payer Address Payer Phone Subscriber Number Group Number Insured Name Patient Relationship to Insured Coverage Start Date Coverage End Date [employer] [address] [address] [place] [address] [id number] Ha Smiley Self - patient is the insured Medical (General) History Medical History History ICD Code Cataracts Gall bladder problems Hiatal hernia Scarlet fever Stomach ulcer Thyroid disorder Joint implants/screws Chicken pox Surgical History Surgery Date(Month/Year) Gall bladder removal 2013 Hernia 2013 hip replacement 2007
[2024-12-11 17:11] LABS: Appearance Urine Clear; Glucose Urine UA Negative (Negative); PH 5.5 (5.0-9.0); Specific Gravity - Urine >= 1.030 (1.005-1.025)
== END 2024-12-10 23:31 | disposition home or self-care (01) ==
LOC: HO.LNP 23:30
DX: Z00.00 Encounter for general adult medical examination without abnormal findings (principal); R41.89 Other symptoms and signs involving cognitive functions and awareness; K59.00 Constipation, unspecified; R00.1 Bradycardia, unspecified
CPT/HCPCS: 81003